=== PATIENT | female | born 1965 | race Caucasian/White ===

== ENCOUNTER 2016-08-04 20:11 | Emergency (ER) | payer OTHER ==
[~2016-08-04] VITALS: Ht 170.2 cm; Wt 125.6 kg
[2016-08-04] MEDS ORDERED: TOPROL XL50 MG PO (20:36)
[2016-08-04] MEDS ORDERED: NORVASC5 MG PO (20:37)
[2016-08-04] MEDS ORDERED: HYDROCHLOROTH12.5 M3 PO (20:37)
[2016-08-04] MEDS ORDERED: CLONIDINE HCL0.1 MG PO (20:38)
[2016-08-04 23:21] VITALS: BP 179/106
== END 2016-08-04 23:23 | disposition home or self-care (01) ==
LOC: EME 20:11
PROC: 2Y41X5Z Packing of Nasal Region using Packing Material (ICD-10-PCS; principal; 2016-08-04)
DX: R04.0 Epistaxis (principal); I10 Essential (primary) hypertension
CPT/HCPCS: 99281; 99284

== ENCOUNTER 2016-08-10 08:00 | Emergency (ER) | payer OTHER ==
[~2016-08-10] VITALS: Ht 170.2 cm; Wt 125.0 kg
[~2016-08-10 08:00] MED LIST: CLONIDINE HCL0.1 MG PO; HYDROCHLOROTH12.5 M3 PO; NORVASC5 MG PO; TOPROL XL50 MG PO
[2016-08-10 10:51] VITALS: BP 198/108
== END 2016-08-10 10:52 | disposition home or self-care (01) ==
LOC: EME 08:00
DX: R04.0 Epistaxis (principal)
CPT/HCPCS: 99281; 99284